=== PATIENT | female | born 1935 | race Caucasian/White ===

== ENCOUNTER 2018-09-07 11:55 | Emergency (ER) | payer MEDICARE, BC ==
[~2018-09-07] VITALS: Ht 157.5 cm; Wt 50.9 kg
[~2018-09-07 11:55] MED LIST: MAXZIDE-25MG TA1 TAB PO; NEXIUM 20MG20 MG PO; NORCO 325 MG-51 TAB PO; TENORMIN100 MG PO; ZANTAC 150MG T150 MG PO; ZOCOR 20MG20 MG PO; ZYRTEC 10MG10 MG PO
[2018-09-07 12:09] VITALS: TEMP 99
[2018-09-07] MEDS ORDERED: PRINIVIL10 MG PO (14:17)
[2018-09-07] MEDS ORDERED: INDERAL40 MG PO (14:17)
[2018-09-07] MEDS ORDERED: TUMS500 MG PO (14:19)
[2018-09-07] MEDS ORDERED: SYSTANE 0.4%-0.1 SOL OU (14:20)
[2018-09-07] MEDS ORDERED: OMEGA-3 1000 MG1 CAP PO (14:21)
[2018-09-07] MEDS ORDERED: NORCO 325 MG-51 TAB PO (15:06)
[2018-09-07 16:30] VITALS: BP 159/81; PULSE 90
[2018-09-13] MEDS ORDERED: PROTONIX20 MG PO (15:40)
[2018-09-13] MEDS ORDERED: MACROBID 1100 MG/CAP PO (15:42)
[2018-09-13] MEDS ORDERED: MIRALAX PA17 GM/Dose PO (15:43)
== END 2018-09-07 16:30 | disposition home or self-care (01) ==
LOC: COL.ER 11:55
DX: S52.502A Unspecified fracture of the lower end of left radius, initial encounter for closed fracture (principal); I10 Essential (primary) hypertension; W19.XXXA Unspecified fall, initial encounter; W22.8XXA Striking against or struck by other objects, initial encounter; Y92.410 Unspecified street and highway as the place of occurrence of the external cause
CPT/HCPCS: J0360; J2405; J2704; J3010; J7040; Q4050

== ENCOUNTER 2018-09-10 15:19 | Emergency (ER) | payer MEDICARE, BC ==
[~2018-09-10] VITALS: Ht 157.5 cm; Wt 50.9 kg
[~2018-09-10 15:19] MED LIST changes: +INDERAL40 MG PO; +OMEGA-3 1000 MG1 CAP PO; +PRINIVIL10 MG PO; +SYSTANE 0.4%-0.1 SOL OU; +TUMS500 MG PO
[2018-09-10 18:41] VITALS: BP 155/68; PULSE 70
[2018-09-11] MEDS ORDERED: SENOKOT S 50 MG1 TAB PO (02:04)
[2018-09-13] MEDS ORDERED: PROTONIX20 MG PO (15:40)
[2018-09-13] MEDS ORDERED: MACROBID 1100 MG/CAP PO (15:42)
[2018-09-13] MEDS ORDERED: MIRALAX PA17 GM/Dose PO (15:43)
== END 2018-09-10 18:41 | disposition home or self-care (01) ==
LOC: COL.ER 15:19
DX: S52.502A Unspecified fracture of the lower end of left radius, initial encounter for closed fracture (principal); I10 Essential (primary) hypertension; X58.XXXA Exposure to other specified factors, initial encounter; Y92.009 Unspecified place in unspecified non-institutional (private) residence as the place of occurrence of the external cause
CPT/HCPCS: Q4021

== ENCOUNTER 2018-09-11 00:49 | Emergency (ER) | payer MEDICARE, BC ==
[~2018-09-11] VITALS: Ht 157.5 cm; Wt 50.9 kg
[2018-09-11 00:52] VITALS: TEMP 99.4
[2018-09-11 01:25] LABS: BASO # 0.1 (0.0-0.2); BASO % 0.7 % (0.0-2.0); EOS # 0.1 (0.0-0.7); GRAN # 5.2 (1.4-6.5); GRAN % 62.1 % (42.2-75.2); HEMOGLOBIN 11.1 g/dl (12.5-16.0); LYMPH # 2.1 (1.2-3.4); LYMPH % 24.4 % (20.0-51.0); MEAN CELL VOLUME 90 fl (80.0-100.0); MEAN CORPUSCULAR HEMOGLOBIN 29 pg (27.0-31.0); MEAN CORPUSCULAR HGB CONC 33 g/dl (33.0-37.0); MEAN PLATELET VOLUME 9.9 fl (7.4-10.4); MONO % 11.6 % (1.7-9.3); PLATELET COUNT 255 K/mm3 (130-400); RED BLOOD COUNT 3.78 M/mm3 (4.10-5.30); REDCELL DISTRIBUTION WIDTH-CV 13.3 % (11.5-14.5)
[2018-09-11 01:37] LABS: ALANINE AMINOTRANSFERASE 41 U/L (9-52); ALBUMIN 3.5 gm/dL (3.5-5.0); ALKALINE PHOSPHATASE 70 U/L (50-136); ANION GAP 6 mmol/L (7-16); AST,SGOT 41 U/L (15-37); BILIRUBIN,TOTAL 0.5 mg/dL (0.0-1.0); BLOOD UREA NITROGEN 23 mg/dL (7-17); CALCIUM 8.9 mg/dL (8.4-10.2); CARBON DIOXIDE 27 mmol/L (22-30); CHLORIDE 108 mmol/L (98-107); CREATININE, serum 0.91 mg/dL (0.52-1.25); GLUCOSE 114 mg/dL (74-106); MAGNESIUM 1.8 mg/dL (1.6-2.3); POTASSIUM 3.8 mmol/L (3.4-5.0); SODIUM 140 mmol/L (137-145); TOTAL PROTEIN 6.7 gm/dL (6.4-8.2)
[2018-09-11 01:50] LABS: TROPONIN-I < 0.012 ng/mL (0.000-0.034)
[2018-09-11 01:52] LABS: MUCOUS Present /lpf; PH 5 (5-8); SQUAMOUS EPITHELIAL 0-2 /hpf; URINE APPEARANCE Clear; URINE BACTERIA None Seen /hpf; URINE BILIRUBIN Negative (NEGATIVE); URINE BLOOD Negative (NEGATIVE); URINE COLOR Yellow; URINE GLUCOSE Negative (NEGATIVE); URINE KETONE Negative (NEGATIVE); URINE LEUKOCYTE ESTERASE 1+ (NEGATIVE); URINE NITRATE Negative (NEGATIVE); URINE PROTEIN(semi-quant) Negative (NEGATIVE); URINE RBC 0-2 /hpf
[2018-09-11 02:02] LABS: COLLECTION METHOD CATHETER
[2018-09-11] MEDS ORDERED: SENOKOT S 50 MG1 TAB PO (02:04)
[2018-09-11 03:40] VITALS: BP 187/79; PULSE 84
[2018-09-13] MEDS ORDERED: PROTONIX20 MG PO (15:40)
[2018-09-13] MEDS ORDERED: MACROBID 1100 MG/CAP PO (15:42)
[2018-09-13] MEDS ORDERED: MIRALAX PA17 GM/Dose PO (15:43)
== END 2018-09-11 03:40 | disposition short-term general hospital (02) ==
LOC: COL.ER 00:49
PROVIDERS: Emergency Medicine
DX: N39.0 Urinary tract infection, site not specified (principal); I10 Essential (primary) hypertension; E78.5 Hyperlipidemia, unspecified; K21.9 Gastro-esophageal reflux disease without esophagitis
CPT/HCPCS: A4216; J0696; J7040

== ENCOUNTER → 2018-10-30 | Outpatient (CLI) | payer MEDICARE, BC ==
[~2018-10-30] VITALS: Ht 157.5 cm; Wt 50.9 kg
[~2018-10-30] MED LIST changes: +MACROBID 1100 MG/CAP PO; +MIRALAX PA17 GM/Dose PO; +NORVASC 5MG5 MG/TAB PO; +PROTONIX20 MG PO; +SENOKOT S 50 MG1 TAB PO; +SINEMET 25/101 UDTAB PO
[2018-10-30 09:03] VITALS: BP 129/67; PULSE 72
[2018-10-30 11:25] VITALS: BP 135/70; PULSE 81
== END ==
LOC: COL.RAD 08:36
DX: E04.1 Nontoxic single thyroid nodule (principal)

== ENCOUNTER → 2019-08-21 | Outpatient (CLI) | payer MEDICARE, BC ==
[2019-08-21 16:43] LABS: BASO # 0.1 (0.0-0.2); BASO % 1.4 % (0.0-2.0); EOS # 0.1 (0.0-0.7); EOS % 1.7 % (0-4.0); GRAN # 4.3 (1.4-6.5); GRAN % 62.5 % (42.2-75.2); HEMATOCRIT 38.4 % (37.0-47.0); HEMOGLOBIN 12.4 g/dl (12.5-16.0); LYMPH # 1.8 (1.2-3.4); LYMPH % 26.4 % (20.0-51.0); MEAN CELL VOLUME 93 fl (80.0-100.0); MEAN CORPUSCULAR HEMOGLOBIN 30 pg (27.0-31.0); MEAN CORPUSCULAR HGB CONC 32 g/dl (33.0-37.0); MEAN PLATELET VOLUME 10.4 fl (7.4-10.4); MONO # 0.6 (0.1-0.6); MONO % 7.9 % (1.7-9.3); PLATELET COUNT 295 K/mm3 (130-400); RED BLOOD COUNT 4.11 M/mm3 (4.10-5.30); REDCELL DISTRIBUTION WIDTH-CV 13.3 % (11.5-14.5)
[2019-08-21 16:49] LABS: ALANINE AMINOTRANSFERASE < 6 U/L (9-52); ALBUMIN 3.7 gm/dL (3.5-5.0); ALKALINE PHOSPHATASE 64 U/L (50-136); ANION GAP 9 mmol/L (7-16); AST,SGOT 19 U/L (15-37); BILIRUBIN,TOTAL 0.7 mg/dL (0.0-1.0); BLOOD UREA NITROGEN 19 mg/dL (7-17); CALCIUM 9.2 mg/dL (8.4-10.2); CARBON DIOXIDE 25 mmol/L (22-30); CHLORIDE 104 mmol/L (98-107); CREATININE, serum 0.98 (0.52-1.25); GLUCOSE 158 mg/dL (74-106); POTASSIUM 4.4 mmol/L (3.4-5.0); SODIUM 138 mmol/L (137-145); TOTAL PROTEIN 6.5 gm/dL (6.4-8.2)
== END ==
LOC: ZCOL.LAB 15:13
PROVIDERS: Nurse Practitioner Family
DX: R41.0 Disorientation, unspecified (principal)

== ENCOUNTER 2019-10-05 19:14 | Emergency (ER) | payer MEDICARE, BC ==
[~2019-10-05] VITALS: Ht 152.4 cm; Wt 45.5 kg
[2019-10-05 19:15] VITALS: TEMP 97.3
[2019-10-05 19:31] LABS: BASO # 0.1 (0.0-0.2); BASO % 1.4 % (0.0-2.0); EOS # 0.1 (0.0-0.7); EOS % 1.5 % (0-4.0); GRAN # 3.7 (1.4-6.5); GRAN % 56.2 % (42.2-75.2); HEMATOCRIT 38.3 % (37.0-47.0); HEMOGLOBIN 12.6 g/dl (12.5-16.0); LYMPH % 30.4 % (20.0-51.0); MEAN CELL VOLUME 91 fl (80.0-100.0); MEAN CORPUSCULAR HEMOGLOBIN 30 pg (27.0-31.0); MEAN CORPUSCULAR HGB CONC 33 g/dl (33.0-37.0); MEAN PLATELET VOLUME 10.4 fl (7.4-10.4); MONO # 0.7 (0.1-0.6); PLATELET COUNT 301 K/mm3 (130-400); RED BLOOD COUNT 4.19 M/mm3 (4.10-5.30); REDCELL DISTRIBUTION WIDTH-CV 13.6 % (11.5-14.5)
[2019-10-05 19:35] LABS: PROTHROMBIN TIME 11.8 SECONDS (9.7-12.8)
[2019-10-05 19:37] LABS: PARTIAL THROMBOPLASTIN TIME 25.8 SECONDS (26.0-37.0)
[2019-10-05 19:41] LABS: ALANINE AMINOTRANSFERASE < 6 U/L (9-52); ALBUMIN 4.2 gm/dL (3.5-5.0); ALKALINE PHOSPHATASE 69 U/L (50-136); ANION GAP 11 mmol/L (7-16); AST,SGOT 25 U/L (15-37); BILIRUBIN,TOTAL 0.6 mg/dL (0.0-1.0); BLOOD UREA NITROGEN 28 mg/dL (7-17); CALCIUM 9.1 mg/dL (8.4-10.2); CARBON DIOXIDE 24 mmol/L (22-30); CHLORIDE 103 mmol/L (98-107); CREATININE, serum 1.49 (0.52-1.25); GLUCOSE 99 mg/dL (74-106); SODIUM 138 mmol/L (137-145); TOTAL PROTEIN 7.3 gm/dL (6.4-8.2)
[2019-10-05] MEDS ORDERED: PROTONIX 40MG T40 MG PO (21:35)
[2019-10-05 23:00] VITALS: BP 201/88; PULSE 78
== END 2019-10-05 23:09 | disposition short-term general hospital (02) ==
LOC: COL.ER 19:14
PROVIDERS: Emergency Medicine
DX: I63.9 Cerebral infarction, unspecified (principal); I10 Essential (primary) hypertension; R47.1 Dysarthria and anarthria; R13.10 Dysphagia, unspecified; R29.701 NIHSS score 1; I27.20 Pulmonary hypertension, unspecified; G20 Parkinson's disease
CPT/HCPCS: J7030

== ENCOUNTER 2019-11-23 12:50 | Inpatient (IN) | payer MEDICARE, BC ==
[~2019-11-23] VITALS: Ht 157.5 cm; Wt 45.0 kg
[~2019-11-23 12:50] MED LIST changes: +PROTONIX 40MG T40 MG PO
[2019-11-23] MEDS ORDERED: LIPITOR20 MG PO (13:27)
[2019-11-23] MEDS ORDERED: HCTZ 25MG TAB25 MG PO (13:27)
[2019-11-23 13:41] LABS: BASO # 0.1 (0.0-0.2); BASO % 1.1 % (0.0-2.0); EOS # 0.2 (0.0-0.7); EOS % 4.5 % (0-4.0); GRAN # 2.7 (1.4-6.5); GRAN % 50.8 % (42.2-75.2); HEMOGLOBIN 11.5 g/dl (12.5-16.0); LYMPH # 1.9 (1.2-3.4); LYMPH % 35.7 % (20.0-51.0); MEAN CELL VOLUME 89 fl (80.0-100.0); MEAN CORPUSCULAR HEMOGLOBIN 30 pg (27.0-31.0); MEAN CORPUSCULAR HGB CONC 34 g/dl (33.0-37.0); MEAN PLATELET VOLUME 10.6 fl (7.4-10.4); MONO # 0.4 (0.1-0.6); MONO % 7.7 % (1.7-9.3); PLATELET COUNT 243 K/mm3 (130-400); RED BLOOD COUNT 3.85 M/mm3 (4.10-5.30); REDCELL DISTRIBUTION WIDTH-CV 13.3 % (11.5-14.5)
[2019-11-23 13:43] LABS: HEMATOCRIT 34.3 % (37.0-47.0)
[2019-11-23] MEDS ORDERED: ASPIRIN 81M81 MG/TA2 PO (14:02)
[2019-11-23 14:04] LABS: ALANINE AMINOTRANSFERASE 12 U/L (9-52); ALBUMIN 3.7 gm/dL (3.5-5.0); ALKALINE PHOSPHATASE 57 U/L (50-136); ANION GAP 12 mmol/L (7-16); AST,SGOT 12 U/L (15-37); BILIRUBIN,TOTAL 0.8 mg/dL (0.0-1.0); BLOOD UREA NITROGEN 19 mg/dL (7-17); CALCIUM 8.7 mg/dL (8.4-10.2); CARBON DIOXIDE 25 mmol/L (22-30); CHLORIDE 97 mmol/L (98-107); CREATININE, serum 1.18 (0.52-1.25); GLUCOSE 86 mg/dL (74-106); POTASSIUM 3.3 mmol/L (3.4-5.0); SODIUM 134 mmol/L (137-145); TOTAL PROTEIN 6.4 gm/dL (6.4-8.2)
[2019-11-23] MEDS ORDERED: BENICAR 20MG TA20 MG PO (14:05)
[2019-11-23 14:15] LABS: TROPONIN-I < 0.012 ng/mL (0.000-0.035)
[2019-11-23] MEDS ORDERED: PLAVIX 75MG TAB75 MG PO (15:25)
[2019-11-23] MEDS ORDERED: LIPITOR 40MG TA40 MG PO (15:26)
[2019-11-23] MEDS ORDERED: BENICAR40 MG PO (15:27)
[2019-11-23 16:05] LABS: COLLECTION METHOD CATHETER
[2019-11-23 16:20] LABS: MUCOUS Present /lpf; PH 7 (5-8); SQUAMOUS EPITHELIAL None Seen /hpf; URINE APPEARANCE Clear; URINE BACTERIA None Seen /hpf; URINE BILIRUBIN Negative (NEGATIVE); URINE BLOOD Negative (NEGATIVE); URINE COLOR Yellow; URINE GLUCOSE Negative (NEGATIVE); URINE KETONE Negative (NEGATIVE); URINE LEUKOCYTE ESTERASE Negative (NEGATIVE); URINE NITRATE Negative (NEGATIVE); URINE PROTEIN(semi-quant) Negative (NEGATIVE); URINE RBC 0-2 /hpf; URINE UROBILINOGEN Negative (NEGATIVE)
--- NOTE | 2019-11-23 18:40 | NUR ---
Report received from ISABELA Moralez RN at this time.
[2019-11-23 19:10] VITALS: BP 201/100; PULSE 81; TEMP 98.3
--- NOTE | 2019-11-23 19:11 | NUR ---
Patient transferred to ICU bed 7 via ED RN with no complications. Patient is alert and oriented, but very quiet and only speaks to answer questions. Vital signs stable except for blood pressure. Kirt, ED RN stated that her blood pressure was labile anywhere from 180-215 systolic. Will continue to assess blood pressure and give shift report to oncoming nurse to take over care.
--- NOTE | 2019-11-23 19:54 | NUR ---
Bedside shift report given to LOS Iraheta at this time. Vital signs are stable, including blood pressure which is 164/85 at this time.
[2019-11-23 20:00] VITALS: BP 164/85; PULSE 78
[2019-11-23 22:00] VITALS: BP 177/94; PULSE 69; TEMP 98
--- NOTE | 2019-11-23 22:00 | NUR ---
Purewick placed due to patient incontinence and weakness. Brief in place as well. Family arrived at bedside around 1999. Discussed code status and history with son, Alber. Family states patient is a DNR and that they have copies if need be but will bring one in the morning. Family left phone number and also mentioned that [facility] would have information about past medical history if needed. Family departed by 2100 because the patient was sleeping.
[2019-11-24] VITALS (8 sets, daily range): BP systolic 119–196; BP diastolic 64–92; PULSE 58–74; TEMP 97.6–98.5
[2019-11-24] MEDS ORDERED: TYLENOL 325MG325 MG PO (01:12)
--- NOTE | 2019-11-24 07:35 | NUR ---
Report recieved from Myrtle MADISON. Patient sleep in bed at this time. Call light at side.
[2019-11-24 08:53] LABS: BASO # 0.1 (0.0-0.2); EOS # 0.4 (0.0-0.7); EOS % 6.3 % (0-4.0); GRAN # 3.3 (1.4-6.5); GRAN % 52.7 % (42.2-75.2); HEMOGLOBIN 12.5 g/dl (12.5-16.0); LYMPH % 32.5 % (20.0-51.0); MEAN CELL VOLUME 88 fl (80.0-100.0); MEAN CORPUSCULAR HEMOGLOBIN 30 pg (27.0-31.0); MEAN CORPUSCULAR HGB CONC 34 g/dl (33.0-37.0); MEAN PLATELET VOLUME 10.4 fl (7.4-10.4); MONO # 0.5 (0.1-0.6); MONO % 7.3 % (1.7-9.3); PLATELET COUNT 263 K/mm3 (130-400); RED BLOOD COUNT 4.16 M/mm3 (4.10-5.30); REDCELL DISTRIBUTION WIDTH-CV 13.5 % (11.5-14.5)
[2019-11-24 09:03] LABS: ALBUMIN 3.9 gm/dL (3.5-5.0); BILIRUBIN,TOTAL 0.9 mg/dL (0.0-1.0); CHOLESTEROL RISK RATIO 2.9; CREATININE, serum 0.88 (0.52-1.25); POTASSIUM 3.1 mmol/L (3.4-5.0); TOTAL PROTEIN 6.9 gm/dL (6.4-8.2)
[2019-11-24 09:19] LABS: HEMATOCRIT 36.6 % (37.0-47.0)
--- NOTE | 2019-11-24 09:30 | NUR ---
Recieved call from Meg MADISON at [facility] to check on status of patient. States will be able to take patient back to [place] if MD ready for discharge today. Will update when this RN aware of plan.
--- NOTE | 2019-11-24 12:19 | NUR ---
Family and nursing staff at [facility] updated on plan. Waiting Dr. Figueroa to come for consult and will discharge back to [place] if neuro ok with discharge.
--- NOTE | 2019-11-24 15:02 | NUR ---
Spoke with Meg MADISON at [facility], ok for discharge. [facility] call meet transportation at hospital at 1600, ok with this RN.
--- NOTE | 2019-11-24 15:50 | NUR ---
Sits on side of bed to dress. Does need lots of encouragement to stay sitting. Was incontient of urine, even with purewick in place, pericare given and brief placed and patient dressed in clothes that are here. Is able to put own bra on and shirt, needs assist with pants and shoes but is able to own sweater on and transfer self to wheelchair. Meg MADISON here at bedside.
--- NOTE | 2019-11-24 16:07 | NUR ---
Discharged to [facility] with nurse and transportation person, patient leaves via WC. Does not have coat, wrapped in warm blankets. Discharge packet sent with nurse.
[2019-11-26 07:42] LABS: FOLATE (FOLIC ACID) 10.5 ng/mL (7.0-31.4)
== END 2019-11-24 16:07 | disposition home or self-care (01) | DRG 66 ==
LOC: COL.ER 12:50 → MEDICAL 14:54 → ICU 20:02
PROVIDERS: Emergency Medicine; Physician Assistant; ADMIT Student in an Organized Health Care Education/Training Program
DX: I63.89 Other cerebral infarction (principal); G20 Parkinson's disease; I16.0 Hypertensive urgency; E78.5 Hyperlipidemia, unspecified; K21.9 Gastro-esophageal reflux disease without esophagitis; E87.6 Hypokalemia; E04.1 Nontoxic single thyroid nodule; Z79.82 Long term (current) use of aspirin; Z86.73 Personal history of transient ischemic attack (TIA), and cerebral infarction without residual deficits
CPT/HCPCS: 99223-AI; 99239; A9585; J1650; J7030; Q9967

== ENCOUNTER 2019-11-26 10:53 | Inpatient (IN) | payer MEDICARE, BC ==
[~2019-11-26] VITALS: Ht 157.5 cm; Wt 47.7 kg
[~2019-11-26 10:53] MED LIST changes: +ASPIRIN 81M81 MG/TA2 PO; +BENICAR 20MG TA20 MG PO; +BENICAR40 MG PO; +HCTZ 25MG TAB25 MG PO; +LIPITOR 40MG TA40 MG PO; +LIPITOR20 MG PO; +PLAVIX 75MG TAB75 MG PO; +TYLENOL 325MG325 MG PO
[2019-11-26 11:27] LABS: BASO # 0.1 (0.0-0.2); BASO % 0.5 % (0.0-2.0); EOS # 0.1 (0.0-0.7); EOS % 1.4 % (0-4.0); GRAN # 6.9 (1.4-6.5); HEMATOCRIT 37.2 % (37.0-47.0); HEMOGLOBIN 12.4 g/dl (12.5-16.0); LYMPH # 1.9 (1.2-3.4); LYMPH % 20.1 % (20.0-51.0); MEAN CELL VOLUME 90 fl (80.0-100.0); MEAN CORPUSCULAR HEMOGLOBIN 30 pg (27.0-31.0); MEAN CORPUSCULAR HGB CONC 33 g/dl (33.0-37.0); MEAN PLATELET VOLUME 10.7 fl (7.4-10.4); MONO # 0.5 (0.1-0.6); MONO % 4.8 % (1.7-9.3); PLATELET COUNT 242 K/mm3 (130-400); RED BLOOD COUNT 4.13 M/mm3 (4.10-5.30); REDCELL DISTRIBUTION WIDTH-CV 13.3 % (11.5-14.5)
[2019-11-26 11:41] LABS: PROTHROMBIN TIME 11.3 SECONDS (9.7-12.8)
[2019-11-26 11:42] LABS: ALANINE AMINOTRANSFERASE < 6 U/L (9-52); ALBUMIN 4.2 gm/dL (3.5-5.0); ALKALINE PHOSPHATASE 61 U/L (50-136); ANION GAP 12 mmol/L (7-16); AST,SGOT 17 U/L (15-37); BLOOD UREA NITROGEN 21 mg/dL (7-17); CALCIUM 9.1 mg/dL (8.4-10.2); CARBON DIOXIDE 25 mmol/L (22-30); CHLORIDE 97 mmol/L (98-107); CREATININE, serum 1.35 (0.52-1.25); GLUCOSE 170 mg/dL (74-106); POTASSIUM 3.3 mmol/L (3.4-5.0); SODIUM 133 mmol/L (137-145); TOTAL PROTEIN 7.1 gm/dL (6.4-8.2)
[2019-11-26 12:09] LABS: COLLECTION METHOD CATHETER
[2019-11-26 12:10] LABS: TROPONIN-I 0.245 ng/mL (0.000-0.035)
[2019-11-26 12:22] LABS: MUCOUS Present /lpf; PH 6 (5-8); SQUAMOUS EPITHELIAL None Seen /hpf; URINE APPEARANCE Hazy; URINE BACTERIA Many /hpf; URINE BILIRUBIN Negative (NEGATIVE); URINE BLOOD 2+ (NEGATIVE); URINE COLOR Yellow; URINE GLUCOSE Negative (NEGATIVE); URINE KETONE Negative (NEGATIVE); URINE LEUKOCYTE ESTERASE 2+ (NEGATIVE); URINE NITRATE Positive (NEGATIVE); URINE PROTEIN(semi-quant) Negative (NEGATIVE); URINE RBC 0-2 /hpf; URINE UROBILINOGEN Negative (NEGATIVE)
[2019-11-26 15:43] LABS: MAGNESIUM 1.8 mg/dL (1.6-2.3)
[2019-11-26 16:19] VITALS: BP 174/101; PULSE 78; TEMP 99
[2019-11-26 16:38] LABS: TROPONIN-I 0.255 ng/mL (0.000-0.035)
[2019-11-26] MEDS ORDERED: MIRALAX PA17 GM/Dose PO (16:56)
--- NOTE | 2019-11-26 17:00 | NUR ---
Pt arrived to room 313 at this time. She is A/Ox4. Pt asking if she has to stay the night tonight, situation explained to patient. Verbalizes understanding. Pt's breathing is even and unlabored on RA. Pt denies SOB or pain. Requesting water, bedside swallow study normal. Neuro checks WNL, no weakness noted to one side over another. IV to LAC intact. Fall precautions in place. Will continue to monitor.
[2019-11-26 18:18] VITALS: BP 194/74; PULSE 73
[2019-11-26 18:21] VITALS: BP 191/91; PULSE 81
[2019-11-26 18:22] VITALS: BP 196/73; PULSE 95
--- NOTE | 2019-11-26 19:02 | NUR ---
Pt incontinent of urine, pericare provided. Pt's BP consistently high, PRN Apresoline administered. Report given to LOS Villegas.
[2019-11-26 20:11] VITALS: BP 157/61; PULSE 88; TEMP 98.7
--- NOTE | 2019-11-26 20:14 | NUR ---
Maurice from [facility] called requesting update on patient. Patient lives in assisted living and patient may need more assistance from [facility]. Will pass on to social work. Maurice is clinical coordinator for [facility] Phone number: [phone].
--- NOTE | 2019-11-26 20:30 | NUR ---
Resting in bed. Assessment complete. Lungs clear. Heart sounds normal. Bowels active x4. pulses strong throughout. No edema noted. IV left AC infusing at 75 ml/hr without complications. Denies pain. Denies needs. Alert and orientated x3. Call light in reach. Incontinent of urine. Cares provided.
[2019-11-26 23:26] VITALS: BP 137/52; PULSE 79; TEMP 98.5
--- NOTE | 2019-11-26 23:43 | NUR ---
Incontinent of urine. Cares provided. Denies pain. Denies needs. call light in reach.
--- NOTE | 2019-11-27 01:53 | NUR ---
Resting in bed. Call light in reach.
[2019-11-27 04:31] VITALS: BP 151/62; PULSE 77; TEMP 98.7
--- NOTE | 2019-11-27 05:41 | NUR ---
Patient had uneventful night. Was assisted to bedside commode x1 assist with gait belt and walker as needed throughout night. Resting in bed this AM. Call light in reach.
[2019-11-27 07:04] LABS: BASO # 0.1 (0.0-0.2); EOS # 0.1 (0.0-0.7); EOS % 1.8 % (0-4.0); GRAN # 2.8 (1.4-6.5); GRAN % 45.2 % (42.2-75.2); HEMOGLOBIN 11.6 g/dl (12.5-16.0); LYMPH # 2.7 (1.2-3.4); LYMPH % 43.6 % (20.0-51.0); MEAN CELL VOLUME 89 fl (80.0-100.0); MEAN CORPUSCULAR HEMOGLOBIN 30 pg (27.0-31.0); MEAN CORPUSCULAR HGB CONC 34 g/dl (33.0-37.0); MEAN PLATELET VOLUME 10.7 fl (7.4-10.4); MONO # 0.5 (0.1-0.6); MONO % 8.2 % (1.7-9.3); PLATELET COUNT 250 K/mm3 (130-400); RED BLOOD COUNT 3.87 M/mm3 (4.10-5.30); REDCELL DISTRIBUTION WIDTH-CV 13.5 % (11.5-14.5)
[2019-11-27 07:10] LABS: HEMATOCRIT 34.6 % (37.0-47.0)
--- NOTE | 2019-11-27 07:13 | NUR ---
Report given to LOS Huynh
[2019-11-27 07:15] LABS: CALCIUM 8.6 mg/dL (8.4-10.2); CREATININE, serum 0.94 (0.52-1.25); POTASSIUM 3.7 mmol/L (3.4-5.0)
[2019-11-27 07:28] LABS: TROPONIN-I 0.287 ng/mL (0.000-0.035)
[2019-11-27 07:41] VITALS: BP 165/69; PULSE 75; TEMP 98.7
--- NOTE | 2019-11-27 10:00 | NUR ---
Patient was resting in bed with eyes closed. Did awaken to touch. Was slow to respond but is reported to be hard of hearing. Meg from [facility] came to visit with staff and see patient. She reported that patient is not at baseline. She lives at an independent dementia unit with her . Patient is more interactive than she was. Meg did bring hearing aids and glasses. Patients response time was quicker after having them. She still has a flat affect. Did not wish to eat breakfast. Did drink ensure shake. Has taken medications without difficulty. IV fluids continue to infuse, is currently sitting up in recliner with legs elevated. [facility]
[2019-11-27 11:41] VITALS: BP 129/53; PULSE 91; TEMP 97.9
--- NOTE | 2019-11-27 14:54 | NUR ---
workers compensation claims specialist contacted patient's son, Alber, to discuss discharge planning. Patient lives in [facility] (memory supported) assisted living at [facility]. Patient was recently hopsitalized within the last 30 days. Patient has dementia and her , Aldair, resides with her in [facility]. Alber is listed on patient's durable power of attorney recruiter, after spouse, and states his plan is for patient to return to [facility] upon discharge. Worker Alber discussed possible skilled care needed upon discharge and confirmed [facility] is desired. Choice form completed. Halina bermudez [facility] screened patient and is anticipating skilled care. Physical therapy has evaluated patient and recommends skilled care.
[2019-11-27 16:50] VITALS: BP 160/75; PULSE 92
--- NOTE | 2019-11-27 19:08 | NUR ---
Patient is awake ad alert in room eating supper. No needs identified. Call light and personal items are within reach.
[2019-11-27 20:10] VITALS: BP 161/81; PULSE 85; TEMP 99.1
--- NOTE | 2019-11-27 20:15 | NUR ---
Resting in bed. Assessment complete. Lungs clear. Heart sounds normal. Bowels active x4. Pulses strong throughout. No edema noted. IV left AC without complications infusing at 75ml/hr as ordered. Patient reports "irritated throat" with coughing yellow sputum. Denies any shortness of breath or any other symptoms. Will pass on to next shift for hospitalist rounds. Patient alert and orientated. Assisted to restroom x1 assist with gait belt and walker and returned to bed. Denies other needs at this time. BP after ambulation elevated at systolic of 161. Provided schedule medications. Will monitor. Denies other pain at this time. Denies needs. Call light in reach.
--- NOTE | 2019-11-27 23:44 | NUR ---
Up to restroom and returned to bed. Denies pain. Denies needs at this time. Call light in reach
[2019-11-28] VITALS (8 sets, daily range): BP systolic 122–192; BP diastolic 43–88; PULSE 66–88; TEMP 96.8–98.3
--- NOTE | 2019-11-28 00:06 | NUR ---
Systolic 177. Provided with PRN hydralazine as ordered.
--- NOTE | 2019-11-28 00:40 | NUR ---
BP now 146/64. Denies needs. Call light in reach.
--- NOTE | 2019-11-28 03:08 | NUR ---
Up to restroom and returned to bed. Denies pain. Call light in reach.
--- NOTE | 2019-11-28 05:44 | NUR ---
Patient required x1 dose of hydralazine for systolic BP of 177 during night. Remained alert and orientated. Able to walk to restroom with x1 assist gait belt and walker. Resting in bed this AM. Denies needs. Call light in reach.
[2019-11-28 06:03] LABS: BASO # 0.1 (0.0-0.2); BASO % 1.1 % (0.0-2.0); EOS # 0.2 (0.0-0.7); EOS % 2.7 % (0-4.0); GRAN # 3.6 (1.4-6.5); GRAN % 50.5 % (42.2-75.2); HEMOGLOBIN 11.9 g/dl (12.5-16.0); LYMPH # 2.7 (1.2-3.4); LYMPH % 38.5 % (20.0-51.0); MEAN CELL VOLUME 90 fl (80.0-100.0); MEAN CORPUSCULAR HEMOGLOBIN 30 pg (27.0-31.0); MEAN CORPUSCULAR HGB CONC 33 g/dl (33.0-37.0); MEAN PLATELET VOLUME 10.3 fl (7.4-10.4); MONO # 0.5 (0.1-0.6); MONO % 7.1 % (1.7-9.3); PLATELET COUNT 270 K/mm3 (130-400); RED BLOOD COUNT 3.98 M/mm3 (4.10-5.30); REDCELL DISTRIBUTION WIDTH-CV 13.7 % (11.5-14.5)
[2019-11-28 06:08] LABS: CALCIUM 8.7 mg/dL (8.4-10.2); CREATININE, serum 0.8 (0.52-1.25); HEMATOCRIT 35.9 % (37.0-47.0); POTASSIUM 3.9 mmol/L (3.4-5.0)
--- NOTE | 2019-11-28 06:46 | NUR ---
Report given to LOS Huynh
--- NOTE | 2019-11-28 08:37 | NUR ---
Patient is awake and alert in room. Was assisted to bathroom per her request. Was slightly incontinent. Brief was changed and [facility] care provided. Patient states her throat feels slightly scratchy, did administer PRN tylenol. Was assisted to recliner for breakfast. Meg from [facility] is at bedside. Did discuss with her if she had received a flu shot and she is unsure. Patient states she did. Meg stated she will review charting and call to notify if she received it or not. Patient is currently taking medications and has been reported by Meg that she has had some trouble at times. Did offer pudding to assist with swallowing and patient declines. IV fluids remain running at 75 ml/hr. Denies pain to the IV site. Call light and personal items are within reach.
--- NOTE | 2019-11-28 17:20 | NUR ---
Mental Health Counselor faxed updates to [facility]. SW met with patient to review discharge plan. SW to continue to follow.
--- NOTE | 2019-11-28 18:32 | NUR ---
Patient is sitting up in recliner, [facility], states she is having some minor irritation to her throat again and would like some cream for it. I did inform patient that she does not have cream but does have tylenol. She did accept this. Otherwise she reports she is comfortable. Call light and personal items are within reach.
--- NOTE | 2019-11-28 20:30 | NUR ---
Resting in bed. Assessment complete. Lungs clear. Heart sounds normal. Bowels active x4. Pulses present throughout. No edema noted. INT left AC flushed without complications. Denies pain. Recently up with [employer] brushing teeth and doing nightly cares with standby assist. Denies needs at this time. Call light in reach.
--- NOTE | 2019-11-29 00:23 | NUR ---
Resting in bed. Denies needs. Call light in reach.
[2019-11-29 03:31] VITALS: BP 163/78; PULSE 79; TEMP 97.5
[2019-11-29 03:40] VITALS: BP 182/75
--- NOTE | 2019-11-29 03:44 | NUR ---
Patient BP 163/78. Rechecked 182/75. Patient resting in bed. Provided with PRN hydralazine as ordered. denies pain at this time.
[2019-11-29 04:14] VITALS: BP 146/55
--- NOTE | 2019-11-29 06:17 | NUR ---
Patient received x1 dose of hydralazine throughout night for systolic of 182. Otherwise uneventful night. Resting in bed this AM.
--- NOTE | 2019-11-29 07:21 | NUR ---
Report given Lisa RN
[2019-11-29 08:03] VITALS: BP 157/65; PULSE 80; TEMP 98.3
[2019-11-29] MEDS ORDERED: PLAVIX 75MG TAB75 MG PO (08:18)
[2019-11-29] MEDS ORDERED: CEFTIN 250250 MG/TAB PO (11:29)
[2019-11-29] MEDS ORDERED: NORVASC2.5 MG PO (11:33)
[2019-11-29] MEDS ORDERED: K-TAB20 PO (11:33)
--- NOTE | 2019-11-29 12:59 | NUR ---
Carbonator attended clinical rounds with the team and patient to discharge to [facility] today. ANAM coordinated with Halina from [facility] to arrange transportation time for 1430 today. ANAM also faxed updates. Halina advised patient to discharge to [facility] or [facility] for skilled therapy before returning to [facility] for memory care. ANAM met with patient to review discharge plan and patient is in agreeance. ANAM contacted patient's son, Alber to review discharge plan and Alber is also in agreeance with plan. ANAM presented IM form via phone call to Alber who expressed he understood patient's rights. ANAM obtained verbal signature and placed IM form on the chart. ANAM provided update to LOS Gonzalez on transport time. ANAM faxed discharge orders to Halina at [facility].
[2019-11-29 13:29] VITALS: BP 128/49; PULSE 81; TEMP 98.1
--- NOTE | 2019-11-29 15:00 | NUR ---
IV AND TELE REMOVED. PT ASSISTED TO GET DRESSED FOR DC'ING BACK TO [facility]. HAD UNEVENTFUL DAY THIS DAY. NO NOTED ISUES OR CONSERNS OR QUESTIONS VOICED.
== END 2019-11-29 15:00 | DRG 689 ==
LOC: COL.ER 10:53 → MEDICAL 13:32
PROVIDERS: Emergency Medicine; Physician Assistant; ADMIT Student in an Organized Health Care Education/Training Program
DX: N39.0 Urinary tract infection, site not specified (principal); I21.4 Non-ST elevation (NSTEMI) myocardial infarction; I50.32 Chronic diastolic (congestive) heart failure; N17.9 Acute kidney failure, unspecified; E87.2 Acidosis; E87.1 Hypo-osmolality and hyponatremia; E86.0 Dehydration; K21.9 Gastro-esophageal reflux disease without esophagitis; G20 Parkinson's disease; I11.0 Hypertensive heart disease with heart failure; E87.6 Hypokalemia; I95.9 Hypotension, unspecified; E78.5 Hyperlipidemia, unspecified; Z86.73 Personal history of transient ischemic attack (TIA), and cerebral infarction without residual deficits; Z79.82 Long term (current) use of aspirin
CPT/HCPCS: 99223-AI; 99232-AI; 99239; A4216; J0360; J0696; J1644; J7030; Q9967